=== PATIENT | male | born 1960 | race Caucasian/White ===

== ENCOUNTER 2019-12-17 07:46 | Emergency (ER) | payer OTHER ==
[2019-12-17] MEDS ORDERED: Bacitracin 1 PK ONE (08:55)
[2019-12-17] MEDS ORDERED: Cephalexin 250 MG CAP ONE (09:02)
== END 2019-12-17 08:55 | disposition home or self-care (01) ==
LOC: BURERS 07:46
DX: S81.022A Laceration with foreign body, left knee, initial encounter (principal); I10 Essential (primary) hypertension; E78.5 Hyperlipidemia, unspecified; W26.8XXA Contact with other sharp object(s), not elsewhere classified, initial encounter
CPT/HCPCS: 12005